=== PATIENT | male | born 1975 | race Caucasian/White ===

== ENCOUNTER 2018-04-10 20:31 | Emergency (ER) | payer BC ==
[~2018-04-10] VITALS: Ht 172.7 cm; Wt 108.9 kg
== END 2018-04-11 02:11 | disposition home or self-care (01) ==
LOC: ED 20:31
DX: S20.221A Contusion of right back wall of thorax, initial encounter (principal); S50.811A Abrasion of right forearm, initial encounter; R07.89 Other chest pain; M54.2 Cervicalgia; Z88.1 Allergy status to other antibiotic agents; V89.2XXA Person injured in unspecified motor-vehicle accident, traffic, initial encounter; Y93.89 Activity, other specified; Y92.488 Other paved roadways as the place of occurrence of the external cause; Y99.8 Other external cause status